=== PATIENT | male | born 1970 | race African-American/Black ===

== ENCOUNTER 2018-09-11 22:29 | Inpatient (IN) | payer MEDICAID ==
[~2018-09-11] VITALS: Ht 190.5 cm; Wt 79.4 kg
[2018-09-12] MEDS ORDERED: KETOROLAC 30MG/ML VIAL IV STA (01:53)
[2018-09-12] MEDS ORDERED: PIPERACILLIN/TAZOBACTAM 3.375GM/50ML PREMIX IV ONE (02:00)
[2018-09-12] MEDS ORDERED: VANCOMYCIN 1 G PREMIX 200 ML IV SCH (02:00)
[2018-09-12 02:15] LABS: EOSINOPHILS % 1.1 % (0.0-5.0); HEMOGLOBIN. 13.4 g/dL (14.0-18.0); LYMPHOCYTES % 19.3 % (20.0-50.0); MEAN CORPUSCULAR HEMOGLOBIN 31.4 pg (28.0-32.0); MEAN CORPUSCULAR VOLUME 91.5 fL (80.0-94.0); MEAN PLATELET VOLUME 6.8 fl (7.4-10.4); MONOCYTES % 7.3 % (2.0-8.0); NEUTROPHILS % 71.3 % (40.0-76.0); PLATELET 307 x1000/uL (130-400); RED BLOOD CELL COUNT 4.26 mill/uL (4.7-6.1); RED CELL DISTRIBUTION WIDTH 14.4 % (11.6-14.6)
[2018-09-12 02:20] LABS: CHLORIDE 107 mEq/L (98-107)
[2018-09-12] MEDS ORDERED: IPRATROPIUM/ALBUTEROL 0.5-3(2.5)MG/3ML NEB INH PRN (07:30)
[2018-09-12] MEDS ORDERED: ONDANSETRON HCL 4MG/2ML INJ IV PRN (07:30)
[2018-09-12] MEDS ORDERED: PIPERACILLIN/TAZ 3.375G PREMIX 50 ML IV SCH ×4 (07:30→14:00)
[2018-09-12] MEDS ORDERED: DIPHENHYDRAMINE 50MG/ML VIAL IV PRN (07:30)
[2018-09-12] MEDS ORDERED: MAGNESIUM/ALUMINUM HYDROXIDE/SIMETHICONE 30ML UDC PO PRN (07:30)
[2018-09-12] MEDS ORDERED: HYDROMORPHONE HCL/PF 2MG/ML CPJ IV PRN (07:30)
[2018-09-12] MEDS ORDERED: NA PHOS,M-B/NA PHOS,DI-BA ENEMA 118ML PR PRN (07:30)
[2018-09-12] MEDS ORDERED: LORAZEPAM 2MG/ML CPJ IV PRN (07:30)
[2018-09-12] MEDS ORDERED: GUAIFENESIN 200MG/10ML SUGAR FREE UDC PO PRN (07:30)
[2018-09-12] MEDS ORDERED: CLONIDINE 0.1MG TABLET PO PRN (07:30)
[2018-09-12] MEDS ORDERED: ACETAMINOPHEN 325MG TABLET PO PRN (07:30)
[2018-09-12] MEDS ORDERED: DOCUSATE SODIUM 100MG CAPSULE PO PRN (07:30)
[2018-09-12] MEDS ORDERED: HYDRALAZINE 20MG/ML VIAL IV PRN (07:30)
[2018-09-12] MEDS ORDERED: HYDROCODONE/ACETAMINOPHEN 10/325MG TABLET PO PRN (07:30)
[2018-09-12 08:30] VITALS: BP_SYST 128; BP_SYST 139; BP_DIAS 82; BP_DIAS 86; BP_DIAS 88
[2018-09-12 09:00] VITALS: BP 128/86
[2018-09-12] MEDS ORDERED: HYDRALAZINE 10 MG in SODIUM CHLORIDE 0.9% 49.5 ML IV PRN (09:30)
[2018-09-12 12:00] VITALS: BP_SYST 137; BP_DIAS 72; BP_DIAS 82
[2018-09-12] MEDS ORDERED: MIRT15TA MT (13:19)
[2018-09-12] MEDS ORDERED: DIPH-907 GT (13:20)
[2018-09-12] MEDS ORDERED: VANCOMYCIN 1250MG in DEXTROSE 5% WATER 250ML IV SCH (14:00)
[2018-09-12] MEDS: SODIUM CHLORIDE 0.9% INJ 3ML FLUSH IVF SCH (14:43)
[2018-09-12] MEDS ORDERED: PNEUMOCOCCAL 23-VAL P-SAC VAC 0.5 ML IM ONE (15:00)
[2018-09-12] MEDS ORDERED: INFLUENZA VIRUS VACCINE(AFLURIA) 0.5ML SYR IM ONE (15:00)
[2018-09-12 16:00] VITALS: BP 125/67
[2018-09-12 20:00] VITALS: BP 124/73
[2018-09-12] MEDS ORDERED: VANCOMYCIN 1,250 MG in DEXT 5% WATER 250 ML IV SCH (23:00)
[2018-09-12] MEDS: PIPERACILLIN/TAZ 3.375G PREMIX 50 ML IV SCH (23:09)
[2018-09-13] VITALS: BP 158/89
[2018-09-13] MEDS ORDERED: PNEUMOCOCCAL 23-VAL P-SAC VAC 0.5 ML IM ONE
[2018-09-13] MEDS ORDERED: INFLUENZA VIRUS VACCINE(AFLURIA) 0.5ML SYR IM ONE
[2018-09-13 04:00] VITALS: BP 138/78
[2018-09-13] MEDS: PIPERACILLIN/TAZ 3.375G PREMIX 50 ML IV SCH (05:26)
[2018-09-13] MEDS: SODIUM CHLORIDE 0.9% INJ 3ML FLUSH IVF SCH (05:36)
[2018-09-13 07:22] LABS: BASOPHILS % 0.9 % (0.0-2.0); EOSINOPHILS % 1.3 % (0.0-5.0); HEMATOCRIT. 38.5 % (42.0-52.0); HEMOGLOBIN. 13.1 g/dL (14.0-18.0); LYMPHOCYTES % 27.9 % (20.0-50.0); MEAN CORPUSCULAR HEMOGLOBIN 30.9 pg (28.0-32.0); MEAN CORPUSCULAR VOLUME 90.8 fL (80.0-94.0); MEAN PLATELET VOLUME 7.6 fl (7.4-10.4); MONOCYTES % 9.4 % (2.0-8.0); NEUTROPHILS % 60.5 % (40.0-76.0); PLATELET 314 x1000/uL (130-400); RED BLOOD CELL COUNT 4.24 mill/uL (4.7-6.1)
[2018-09-13 07:52] LABS: CHLORIDE 105 mEq/L (98-107)
[2018-09-13 08:00] VITALS: BP 129/79
[2018-09-13 10:10] VITALS: BP 129/79
== END 2018-09-13 15:45 | disposition home or self-care (01) | DRG 383 ==
LOC: ER 22:29 → 6EST 09-12 04:36 → EDBEDREQ 09-12 04:42 → EDBEDREQTM 09-12 04:42 → ENRESERV 09-12 07:11
PROVIDERS: ADMIT Internal Medicine; ATTEND Internal Medicine
DX: L03.116 Cellulitis of left lower limb (principal); F12.90 Cannabis use, unspecified, uncomplicated; F17.210 Nicotine dependence, cigarettes, uncomplicated; Z59.0 Homelessness
CPT/HCPCS: 36415; 87070; 87077; 90686; 90732; 93971; 96374; 99285; J1885; J2543; J3370; J7060